=== PATIENT | female | born 1945 | race Caucasian/White ===

== ENCOUNTER 2022-04-14 18:08 | Emergency (ER) | payer SELFPAY ==
[~2022-04-14] VITALS: Ht 154.9 cm; Wt 52.2 kg
[2022-04-14] MEDS ORDERED: LISINOPRIL10 MG PO (21:14)
[2022-04-14] MEDS ORDERED: QVAR REDIHALE10.6 G1 (21:15)
[2022-04-14] MEDS ORDERED: PAXLOVID 300-11 EACH PO (21:16)
== END 2022-04-14 21:33 | disposition home or self-care (01) ==
LOC: ED 18:08
DX: U07.1 COVID-19 (principal); J45.909 Unspecified asthma, uncomplicated; I10 Essential (primary) hypertension; Z79.899 Other long term (current) drug therapy
CPT/HCPCS: 99283